=== PATIENT | male | born 1970 | race Caucasian/White ===

== ENCOUNTER 2023-01-08 04:39 | Inpatient (IN) | payer OTHER ==
[~2023-01-08] VITALS: Ht 180.3 cm; Wt 99.8 kg
[2023-01-08] MEDS ORDERED: LORAZEPAM INJ 2 MG/ML VIAL ONE (04:48)
--- NOTE | 2023-01-08 04:50 | NUR ---
URINE SPECIMEN SENT TO LAB
--- NOTE | 2023-01-08 04:52 | NUR ---
[id number] FROM HOME C/O SEIZURE AT HOME WITH Hx OF EPILEPSY. PATIENT CAME WITH IV VEENA ON RIGHT HAND G20. 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 PATIENT HAS ACTIVE SEIZURE AT AROUND 0448H LASTING 90 SECONDS. TRANSFERRED TO ROOM 3. PLACED ON SEIZURE PREC. TURNED PT TO SIDE. SUCTION SECRETIONS DONE. PLACED ON NRB MASK AT 10LPM SATURATING 94%. PT IS ASLEEP, SNORING. ATTACHED TO MONITOR. VITALS CHECKED.
[2023-01-08] MEDS ORDERED: LEVETIRACETAM (500MG) 1,000 MG in IV NS 0.9% 100 ML IV STA (04:57)
[2023-01-08] MEDS ORDERED: LORAZEPAM INJ 2 MG/ML VIAL IVP ONE (05:00)
[2023-01-08] MEDS ORDERED: LEVETIRACETAM (500MG) 500 MG/5 ML VIAL IV ONE (05:05)
--- NOTE | 2023-01-08 05:35 | NUR ---
ACCOMPANIED PATIENT TO CT DEPT/XRAY DEPT.
--- NOTE | 2023-01-08 05:49 | NUR ---
AIRCRAFT SEAT UPHOLSTERER AT BEDSIDE
--- NOTE | 2023-01-08 05:54 | NUR ---
COVID SWAB DONE AND SENT TO LAB
[2023-01-08 06:02] LABS: BASOPHILS # (AUTO) 0.1 K/uL (0.0-0.2); BASOPHILS % (AUTO) 0.3 % (0.0-2.0); EOSINOPHILS % (AUTO) 0.9 % (0.0-6.0); HEMATOCRIT 48 % (39-51); HEMOGLOBIN 15.5 g/dL (13.5-17.5); LYMPHOCYTES # (AUTO) 4.3 K/uL (0.8-4.8); LYMPHOCYTES % (AUTO) 17.3 % (20.0-44.0); MEAN CORPUSCULAR HGB CONC 32 g/dl (31.0-36.0); MEAN CORPUSCULAR VOLUME 95 fL (80-96); MONOCYTES # (AUTO) 0.9 K/uL (0.1-1.30); MONOCYTES % (AUTO) 3.8 % (2.0-12.0); NEUTROPHILS # (AUTO) 19.1 K/uL (1.8-8.9); NEUTROPHILS % (AUTO) 77.7 % (43.0-81.0); PLATELET COUNT (AUTO) 214 K/uL (150-450); WHITE BLOOD COUNT (AUTO) 24.6 K/uL (4.3-11.0)
--- NOTE | 2023-01-08 06:17 | NUR ---
UPDATE MOTHER THOMPSON AT
[2023-01-08 06:33] LABS: CALCIUM, SERUM 9.2 mg/dL (8.5-10.1); CARBON DIOXIDE 13 mmol/L (21-32); CHLORIDE 104 mmol/L (98-107); CREATININE 1.7 mg/dL (0.6-1.3); GLUCOSE 267 mg/dL (74-106); POTASSIUM 3.9 mmol/L (3.5-5.1); SODIUM SERUM 139 mmol/L (136-145); UREA NITROGEN, BLOOD 21 mg/dL (7-18)
[2023-01-08 06:40] LABS: ALANINE AMINOTRANSFERASE 51 U/L (12-78); ALCOHOL, BLOOD < 3 mg/dL (0-0); ALKALINE PHOSPHATASE 93 U/L (46-116); ASPARTATE AMINOTRANSFERASE 24 U/L (15-37); BILIRUBIN,DIRECT 0.1 mg/dL (0.0-0.2); BILIRUBIN,TOTAL 0.2 mg/dL (0.2-1.0); TOTAL PROTEIN, SERUM 7.9 g/dL (6.4-8.2)
[2023-01-08] MEDS ORDERED: LEVETIRACETAM (500MG) 500 MG in IV NS 0.9% 100 ML IV SCH (07:00)
[2023-01-08] MEDS ORDERED: LORAZEPAM INJ 2 MG/ML VIAL IV PRN (07:00)
[2023-01-08] MEDS ORDERED: ACETAMINOPHEN 325 MG TABLET PO PRN (07:00)
[2023-01-08] MEDS ORDERED: Z GUARD REMEDY 4 OZ OINT TP PRN (07:00)
[2023-01-08] MEDS ORDERED: ONDANSETRON HCL/PF 4 MG/2 ML VIAL IVP PRN (07:00)
[2023-01-08] MEDS ORDERED: HYDROCODONE/APAP 5/325MG TABLET PO PRN (07:00)
[2023-01-08] MEDS ORDERED: LACOSAMIDE 200 MG in IV NS 0.9% 100 ML IV ONE (07:00)
[2023-01-08] MEDS ORDERED: IV NS 0.9% 1,000 ML IV PRN (07:00)
[2023-01-08] MEDS ORDERED: MAGNESIUM HYDROXIDE 30 ML UDC PO PRN (07:00)
--- NOTE | 2023-01-08 07:24 | NUR ---
REPORT GIVEN TO TYREE HOWELL
[2023-01-08] MEDS: PANTOPRAZOLE 40 MG TABLET.DR PO SCH ×2 (07:30→12:05)
--- NOTE | 2023-01-08 09:02 | NUR ---
pt report GIVEN TO MELINA CLEMENTS FOR CONTINUATION OF CARE
--- NOTE | 2023-01-08 09:30 | NUR ---
INTERNAL AFFAIRS INVESTIGATORCOMMUNITY OUTREACH SPECIALIST NOTE PT ALERT AND ORIENTED X3. PT ABLE TO MAKE NEEDS KNOWN. PT ON SIMPLE FACE MASK. PT HAS RIGHT HAND IV.IV INTACT, PATENT AND FLUSHES WELL. SKIN INTACT. PT ON ON TELE MONITOR SINUS TACHYCARDIA.NO SIGNS OF PAIN OR DISCOMFORT NOTED AT THIS TIME. ALL SAFETY MEASURES IN PLACE. CALL LIGHT WITHIN REACH.BED LOCKED AT LOWEST POSITIOON.SIDE RAILS UP X2. BED ALARM ON.
[2023-01-08 10:08] VITALS: BP 132/86
[2023-01-08] MEDS: ZOSYN IVPB 3.375 G in IV D5W 50ml IV SCH ×4 (12:05→23:32)
[2023-01-08] MEDS ORDERED: LACO150T2 PO (13:51)
[2023-01-08 13:55] LABS: LYMPHOCYTES % (MANUAL) 20 % (16-48); MONOCYTES % (MANUAL) 7 % (0-11.0); NEUTROPHILS % (MANUAL) 73 (42-76)
[2023-01-08] MEDS: LEVETIRACETAM (500MG) 500 MG in IV NS 0.9% 100 ML IV SCH (16:19)
[2023-01-08 17:00] VITALS: BP 159/98
[2023-01-08] MEDS: IV NS 0.9% 1,000 ML IV SCH (17:22)
[2023-01-08 19:04] LABS: BILIRUBIN,URINE NEGATIVE (NEGATIVE); COLOR,URINE YELLOW (YELLOW); LEUKOCYTE ESTERASE ,URINE NEGATIVE (NEGATIVE); NITRITE, URINE NEGATIVE (NEGATIVE); PROTEIN,URINE TRACE mg/dl (NEGATIVE); UGLUCOSE NEGATIVE (NEGATIVE); UROBILINOGEN,URINE 0.2 EU/dL (0.2)
[2023-01-08 19:17] LABS: BACTERIA,URINE Rare /HPF (None Seen); RBC,URINE 0-2 /HPF (0-2); SQUAMOUS EPITHELIAL CELL,UR Rare /HPF (None Seen); URIC ACID CRYSTALS,URINE Many /HPF (None Seen); WBC,URINE NONE SEEN /HPF (0-3)
--- NOTE | 2023-01-08 19:30 | NUR ---
MACHINERY DISMANTLER NOTES RECEIVED LAYING FLAT ON BED,BREATHING NON LABORED,ON ROOM AIR.IVF NS AT 90ML/HR RATE INFUSING WELL ON RIGHT HAND SALINE LOCK VIA IV PUMP,SITE PATENT.PER REPORT,HE WAS JUST MEDICATED WITH ZOFRAN FOR VOMITING.CALM AND QUIET ON BED AT THE MOMENT.TELE SR ON MONITOR.SIDE RAIL PADDED FOR SEIZURE PRECAUTION.CALL LIGHT IN REACH,NEEDS ANTICIPATED.
--- NOTE | 2023-01-08 19:43 | NUR ---
COATING MIXER TENDER closing NOTE PT ALERT AND ORIENTED X3. PT ABLE TO MAKE NEEDS KNOWN. PT ON room air saturating at 96%. PT HAS RIGHT HAND IV.IV INTACT, PATENT AND FLUSHES WELL. SKIN INTACT. PT ON ON TELE MONITOR SINUS TACHYCARDIA/sinus rhythm. NO SIGNS OF PAIN OR DISCOMFORT NOTED AT THIS TIME. ALL SAFETY MEASURES IN PLACE. CALL LIGHT WITHIN REACH.BED LOCKED AT LOWEST POSITION.SIDE RAILS UP X2. BED ALARM ON.endorsed to surgical instrument maker rn for contuity of care
[2023-01-08 20:19] LABS: CREATININE, URINE 56.6 MG/DL (30.0-125.0)
[2023-01-08] MEDS: LACOSAMIDE ORAL SOLN 50 MG/5 ML UDC GT SCH (20:57)
[2023-01-08 21:00] VITALS: BP 113/76
[2023-01-09 01:00] VITALS: BP 101/59
[2023-01-09] MEDS: LEVETIRACETAM (500MG) 500 MG in IV NS 0.9% 100 ML IV SCH ×2 (04:31→16:14)
[2023-01-09 05:00] VITALS: BP 92/51
[2023-01-09] MEDS: ZOSYN IVPB 3.375 G in IV D5W 50ml IV SCH ×3 (05:41→17:24)
--- NOTE | 2023-01-09 06:33 | NUR ---
COMPRESSOR MECHANIC NOTES SLEEP WELL AT NIGHT,NO SEIZURE ACTIVITY NOTED,ALL DUE IV ANTIBIOTICS INFUSED,NO ADVERSE REACTION NOTED.ABLE TO REPOSITION SELF,NO DISTRESS.CALL LIGHT IN REACH,NEEDS ATTENDED.
--- NOTE | 2023-01-09 07:23 | NUR ---
RN OPENING NOTE RECEIVED PATIENT IN BED, AWAKE, A/O X4, VERBALLY RESPONSIVE AND ABLE TO MAKE NEEDS KNOWN. NO SIGNS OF ACUTE DISTRESS NOTED. ON ROOM AIR, NO SOB NOTED, BEATHING EVEN AND UNLABORED. NOTED WITH IV ACCESS ON RIGHT HAND #20G RUNNING NS @ 90ML/HR AND RIGHT FOREARM #20G, INTACT AND PATENT, SALINE LOCKED. ON BOTTLER HELPER SHOWING SINUS RHYTHM HR @81. DENIES ANY PAIN AT THIS TIME. SEIZURE AND SAFETY PRECAUTION IN PLACE. BED IN LOW AND LOCKED POSITION. SIDE RAILS UP X2, CALL LIGHT PLACED WITHIN EASY REACH. WILL CONTINUE TO MONITOR PATIENT.
[2023-01-09 07:27] LABS: BASOPHILS % (AUTO) 0.3 % (0.0-2.0); EOSINOPHILS % (AUTO) 0.8 % (0.0-6.0); HEMATOCRIT 40 % (39-51); HEMOGLOBIN 13.6 g/dL (13.5-17.5); LYMPHOCYTES # (AUTO) 2.3 K/uL (0.8-4.8); LYMPHOCYTES % (AUTO) 21.8 % (20.0-44.0); MEAN CORPUSCULAR HGB CONC 34 g/dl (31.0-36.0); MEAN CORPUSCULAR VOLUME 92 fL (80-96); MONOCYTES # (AUTO) 0.8 K/uL (0.1-1.30); MONOCYTES % (AUTO) 8.1 % (2.0-12.0); NEUTROPHILS # (AUTO) 7.2 K/uL (1.8-8.9); PLATELET COUNT (AUTO) 131 K/uL (150-450); RED BLOOD CELL COUNT(AUTO) 4.36 MIL/uL (4.5-6.0); WHITE BLOOD COUNT (AUTO) 10.4 K/uL (4.3-11.0)
[2023-01-09 07:53] LABS: THYROID STIMULATING HORMONE 1.156 uIU/mL (0.358-3.74)
[2023-01-09 07:57] LABS: CALCIUM, SERUM 8.4 mg/dL (8.5-10.1); CREATININE 2.2 mg/dL (0.6-1.3); MAGNESIUM 2.7 mg/dL (1.8-2.4); PHOSPHORUS 3.7 mg/dL (2.5-4.9); POTASSIUM 3.5 mmol/L (3.5-5.1)
[2023-01-09 08:00] VITALS: BP 120/83
[2023-01-09] MEDS: PANTOPRAZOLE 40 MG TABLET.DR PO SCH (08:34)
[2023-01-09] MEDS: LACOSAMIDE ORAL SOLN 50 MG/5 ML UDC GT SCH ×2 (08:34→21:18)
[2023-01-09] MEDS: IV NS 0.9% 1,000 ML IV SCH (08:39)
[2023-01-09 09:00] VITALS: BP 120/83
[2023-01-09] MEDS ORDERED: IV NS 0.9% 1,000 ML IV PRN (10:05)
--- NOTE | 2023-01-09 18:47 | NUR ---
RN CLOSING NOTE PATIENT IN BED, AWAKE, A/O X4, VERBALLY RESPONSIVE AND ABLE TO MAKE NEEDS KNOWN. NO SIGNS OF ACUTE DISTRESS NOTED. REMAINS STABLE ON ROOM AIR, NO SOB NOTED, BREATHING EVEN AND UNLABORED. WITH IV ACCESS ON RIGHT FOREARM #20G RUNNING NS @ 120ML/HR. DENIED ANY PAIN THROUGHOUT THE SHIFT. SEIZURE AND SAFETY PRECAUTION IN PLACE. BED IN LOW AND LOCKED POSITION. SIDE RAILS UP X2, CALL LIGHT PLACED WITHIN EASY REACH. WILL ENDORSE TO NEXT SHIFT FOR CONRINUITY OF CARE.
--- NOTE | 2023-01-09 19:14 | NUR ---
RN OPENING NOTES: RECEIVED PATIENT AWAKE IN BED, ACCOMPANIED BY FAMILY, BED IN LOW POSITION CALL LIGHTS WITHIN REACH, NO COMPLAIN OF PAIN AND DISCOMFORT AT THIS TIME, ON ROOM AIR SATURATING WELL, PATIENT IS A/O X4 AMBULATORY ABLE TO MAKE NEEDS KNOWN,ON SEIZURE PRECAUTION, IV LINE AT RFA#20 WITH ONGOING 0.9NSS@120ML/HR INFUSING WELL, PATIENT KEPT CLEAN AND DRY ALL NEEDS MET WILL CONTINUE TO MONITOR
[2023-01-09 21:00] VITALS: BP 102/53
[2023-01-09 22:41] VITALS: BP 130/79
[2023-01-10] MEDS: LEVETIRACETAM (500MG) 500 MG in IV NS 0.9% 100 ML IV SCH (04:50)
[2023-01-10 05:00] VITALS: BP 139/52
[2023-01-10 05:53] LABS: BASOPHILS % (AUTO) 0.5 % (0.0-2.0); EOSINOPHILS % (AUTO) 1.6 % (0.0-6.0); HEMATOCRIT 41 % (39-51); HEMOGLOBIN 13.7 g/dL (13.5-17.5); LYMPHOCYTES # (AUTO) 2.1 K/uL (0.8-4.8); MEAN CORPUSCULAR HGB CONC 33 g/dl (31.0-36.0); MEAN CORPUSCULAR VOLUME 94 fL (80-96); MONOCYTES # (AUTO) 0.6 K/uL (0.1-1.30); MONOCYTES % (AUTO) 7.2 % (2.0-12.0); NEUTROPHILS # (AUTO) 5.3 K/uL (1.8-8.9); NEUTROPHILS % (AUTO) 64.7 % (43.0-81.0); PLATELET COUNT (AUTO) 125 K/uL (150-450); RED BLOOD CELL COUNT(AUTO) 4.38 MIL/uL (4.5-6.0); WHITE BLOOD COUNT (AUTO) 8.2 K/uL (4.3-11.0)
--- NOTE | 2023-01-10 06:09 | NUR ---
MS RN CLOSING NOTES: PATIENT SLEEP IN BED COMFORTABLY, AROUSABLE TO VERBAL STIMULI, BED IN LOW POSITION CALL LIGHTS WITHIN REACH, NO COMPLAIN OF PAIN AND DISCOMFORT AT THIS TIME ON ROOM AIR SATURATING WELL, PATIENT IS A/O X4 AMBULATORY ABLE TO MAKE NEEDS KNOWN, NO SEIZURE WAS OBSERVED, PATIENT KEPT CLEAN AND DRY ALL NEEDS MET ENDORSE TO INCOMING SHIFT.
[2023-01-10 06:10] LABS: CALCIUM, SERUM 8.6 mg/dL (8.5-10.1); CREATININE 1.8 mg/dL (0.6-1.3); MAGNESIUM 2.3 mg/dL (1.8-2.4); PHOSPHORUS 3.5 mg/dL (2.5-4.9); POTASSIUM 3.8 mmol/L (3.5-5.1)
--- NOTE | 2023-01-10 07:30 | NUR ---
MS RN OPENING NOTES: RECEIVED PATIENT SLEEP IN BED COMFORTABLY, AROUSABLE TO VERBAL STIMULI, BED IN LOW POSITION CALL LIGHTS WITHIN REACH, NO COMPLAIN OF PAIN AND DISCOMFORT AT THIS TIME ON ROOM AIR SATURATING WELL, PATIENT IS A/O X4 AMBULATORY ABLE TO MAKE NEEDS KNOWN, NO SEIZURE WAS OBSERVED. PIV PATENT AND INTACT WITH IV FLUIDS RUNNING ORDERED. SAFETY MEASURES IN PLACED. CALL LIGHT WITHIN REACH. PLAN OF CARE CONTINUE
[2023-01-10] MEDS: PANTOPRAZOLE 40 MG TABLET.DR PO SCH (08:27)
[2023-01-10] MEDS: LACOSAMIDE ORAL SOLN 50 MG/5 ML UDC GT SCH (09:23)
[2023-01-10] MEDS ORDERED: LEVE500T9 PO (11:43)
--- NOTE | 2023-01-10 13:30 | NUR ---
DISCHARGE INSTRUCTIONS REVIEWED WITH THE PATIENT, CONFIRMED UNDERSTANDING, RELEASED ALL PERSONAL BELONGINGS AND DISCHARGE PAPERWORKS WITH THE PATIENT. PATIENT SIGNED ALL DISCHARGE PAPERWORKS AND INVENTORY LIST. PATIENT EXITED THE HOSPITAL ACCOMPANIED BY PATIENT'S MOTHER VIA PRIVATE CAR.
[2023-01-10] MEDS ORDERED: LEVETIRACETAM (250 MG) 250 MG TABLET PO SCH (17:00)
[2023-01-10] MEDS ORDERED: LACOSAMIDE 50 MG TABLET PO SCH (21:00)
== END 2023-01-10 13:14 | disposition home or self-care (01) | DRG 100 ==
LOC: ER 04:40 → TELE1 08:20 → MEDSG1 01-09 10:46
PROVIDERS: ADMIT Nurse Practitioner Acute Care; ATTEND Nurse Practitioner Acute Care
DX: G40.901 Epilepsy, unspecified, not intractable, with status epilepticus (principal); G93.41 Metabolic encephalopathy; N17.0 Acute kidney failure with tubular necrosis; R65.11 Systemic inflammatory response syndrome (SIRS) of non-infectious origin with acute organ dysfunction; Z20.822 Contact with and (suspected) exposure to COVID-19
CPT/HCPCS: 36415; 70450-TC; 71045-TC; 76770-TC; 80048-TC; 80061-TC; 80076-TC; 81001; 82570-TC; 83735-TC; 84100-TC; 84300-TC; 84443-TC; 85025-TC; 86803; 87040-TC; 87081-TC; 87086-TC; 87806; 95819-TC; A4223; C9803; G0378; G0480; J1953; J2060; J2405; J2543; J7030; J7050; J7060